=== PATIENT | female | born 1985 | race Caucasian/White ===

== ENCOUNTER 2016-11-16 09:23 | Emergency (ER) | payer OTHER ==
[~2016-11-16] VITALS: Ht 157.5 cm; Wt 83.8 kg
[~2016-11-16 09:23] MED LIST: Motrin PO; Percocet 5/325,Endoc PO
[2016-11-16 11:02] LABS: INTERNAL CONTROL VALID? YES
[2016-11-16] MEDS ORDERED: MOTRIN800 MG PO (12:30)
[2016-11-16] MEDS ORDERED: BACTRIM,SEPT1 TABLET PO (12:30)
[2016-11-16] MEDS ORDERED: LORTAB 5-325 M1 EACH PO (12:30)
[2016-11-16 13:25] VITALS: BP 122/87
== END 2016-11-16 13:27 | disposition home or self-care (01) ==
LOC: EME 09:23
PROVIDERS: Emergency Medicine
PROC: 0H98XZZ Drainage of Buttock Skin, External Approach (ICD-10-PCS; principal; 2016-11-16)
DX: L05.01 Pilonidal cyst with abscess (principal); F17.200 Nicotine dependence, unspecified, uncomplicated
CPT/HCPCS: 84703; 99281; 99284